=== PATIENT | male | born 1960 ===

== ENCOUNTER 2022-01-15 17:30 | Outpatient (CLI) | payer BC | END 2022-01-15 17:31 | disposition home or self-care (01) | LOC: SLEEPLAB 17:30 | PROVIDERS: ATTEND Student in an Organized Health Care Education/Training Program | DX: G47.33 Obstructive sleep apnea (adult) (pediatric) (principal); R53.83 Other fatigue; E66.9 Obesity, unspecified; R06.83 Snoring; I10 Essential (primary) hypertension; G47.00 Insomnia, unspecified; G47.31 Primary central sleep apnea; Z68.35 Body mass index [BMI] 35.0-35.9, adult | CPT/HCPCS: 95806 ==

== ENCOUNTER 2022-02-18 19:30 | Outpatient (CLI) | payer BC | END 2022-02-18 19:31 | disposition home or self-care (01) | LOC: SLEEPLAB 19:30 | PROVIDERS: ATTEND Student in an Organized Health Care Education/Training Program | DX: G47.33 Obstructive sleep apnea (adult) (pediatric) (principal); R53.83 Other fatigue; E66.9 Obesity, unspecified; R06.83 Snoring; I10 Essential (primary) hypertension | CPT/HCPCS: 95811 ==

== ENCOUNTER 2024-05-28 23:47 | Inpatient (IN) | payer BC ==
[2024-05-29 00:56] VITALS: TEMP 97.6
[2024-05-29] MEDS ORDERED: Dextrose 50% Abboject 50 ML SYRINGE SLOW IVP PRN ×2 (01:43→10:59)
[2024-05-29] MEDS ORDERED: Glucagon 1 MG/ML KIT IM PRN ×2 (01:43→10:59)
[2024-05-29] MEDS ORDERED: traMADol HCl 50 MG TAB PO PRN (01:43)
[2024-05-29] MEDS ORDERED: Morphine 2 MG/ML VIAL SLOW IVP PRN (01:43)
[2024-05-29] MEDS ORDERED: Dextrose 5% in Water 1,000 ML IV PRN ×2 (01:43→10:59)
[2024-05-29] MEDS ORDERED: Promethazine HCl 25 MG/ML VIAL IM PRN (01:43)
[2024-05-29] MEDS ORDERED: Insulin Lispro 100 UNIT/ML 10 ML VIAL SC PRN (01:43)
[2024-05-29] MEDS ORDERED: Ondansetron PF 4 MG/2 ML Vial IVP PRN ×2 (01:43→10:59)
[2024-05-29 07:15] LABS: #Basophils 0.04 10x3/uL (0.0-0.2); %Basophils 0.3 % (0.0-1.0); %Eosinophils 0.4 % (0.0-10.0); %Lymphocytes 9.6 % (21.0-51.0); %Monocytes 9.1 % (0.0-10.0); %Neutrophils 80.2 % (42.0-75.0); Mean Corpuscular HGB CONC 33.3 g/dL (32.0-36.0); Mean Corpuscular Hemoglobin 28.5 pg (27.0-31.0); Mean Corpuscular Volume 85.5 fL (78.0-98.0); Platelet Count 184 10x3/uL (130-400); RBC Distribution Width 13.9 % (11.5-14.5); Red Blood Cell (RBC) Count 4.91 mill/uL (4.70-6.10)
[2024-05-29 07:46] LABS: Anion Gap 15 mmol/L (10-20); BUN (Urea Nitrogen) 13 mg/dL (8.4-25.7); Calc. Creatinine Clearance 0 mL/min (70-130); Calcium 9.3 mg/dL (7.8-10.44); Carbon Dioxide 20 mmol/L (23-31); Chloride 106 mmol/L (98-107); Estimated GFR 102; Glucose 150 mg/dL (80-115); Potassium 4.6 mmol/L (3.5-5.1); Sodium 136 mmol/L (136-145)
[2024-05-29 07:53] LABS: #Basophils 0.03 10x3/uL (0.0-0.2); %Basophils 0.2 % (0.0-1.0); %Eosinophils 0.6 % (0.0-10.0); %Lymphocytes 11.3 % (21.0-51.0); %Monocytes 9.1 % (0.0-10.0); %Neutrophils 78.4 % (42.0-75.0); Hematocrit 44.3 % (42.0-52.0); Hemoglobin 14.9 g/dL (14.0-18.0); Mean Corpuscular HGB CONC 33.6 g/dL (32.0-36.0); Mean Corpuscular Hemoglobin 28.7 pg (27.0-31.0); Mean Corpuscular Volume 85.4 fL (78.0-98.0); Mean Platelet Volume 11.7 fL (7.4-10.4); Platelet Count 191 10x3/uL (130-400); Red Blood Cell (RBC) Count 5.19 mill/uL (4.70-6.10)
[2024-05-29 08:01] VITALS: BP 132/87
[2024-05-29 08:12] LABS: Anion Gap 17 mmol/L (10-20); BUN (Urea Nitrogen) 14 mg/dL (8.4-25.7); Calc. Creatinine Clearance 0 mL/min (70-130); Calcium 9.4 mg/dL (7.8-10.44); Carbon Dioxide 19 mmol/L (23-31); Chloride 106 mmol/L (98-107); Estimated GFR 102; Glucose 146 mg/dL (80-115); Potassium 4.6 mmol/L (3.5-5.1); Sodium 137 mmol/L (136-145)
[2024-05-29] MEDS ORDERED: EPINEPHrine 1 MG/ML VIAL ONE (08:49)
[2024-05-29] MEDS ORDERED: Bupivacaine 0.25% HCL 30 ML VIAL ONE (08:49)
[2024-05-29] MEDS: Piperacillin/Tazobactam 3.375 GM in Sodium Chloride 0.9% 100 ML IVPB SCH ×2 (09:10→09:20)
[2024-05-29] MEDS ORDERED: PROPOFOL 20 ML ONE (09:18)
[2024-05-29] MEDS ORDERED: Rocuronium Bromide 10 MG/ML (10ML VIAL) ONE (09:18)
[2024-05-29] MEDS ORDERED: Midazolam HCl 2 mg/2 ml Vial ONE (09:19)
[2024-05-29] MEDS ORDERED: fentaNYL 50 mcg/mL 1 mL Vial ONE (09:19)
[2024-05-29] MEDS ORDERED: SUCCINYLCHOLINE/SOD CL,ISO/PF 200 MG/10 ML SYRINGE FS ONE (10:07)
[2024-05-29] MEDS ORDERED: Lidocaine 1% PF 5 ML VIAL ONE (10:07)
[2024-05-29] MEDS ORDERED: Ketamine In 0.9 % NaCl 50 MG/5 ML SYRINGE ONE (10:12)
[2024-05-29] MEDS ORDERED: Ketorolac Tromethamine 30 MG (1 mL) VIAL ONE (10:30)
[2024-05-29] MEDS ORDERED: Ondansetron PF 4 MG/2 ML Vial ONE (10:30)
[2024-05-29] MEDS ORDERED: Dexamethasone 20 MG/5 ML VIAL ONE (10:30)
[2024-05-29] MEDS ORDERED: SUGAMMADEX SODIUM 200 MG/2 ML VIAL ONE (10:31)
[2024-05-29] MEDS: Sodium Chloride 0.9% 1,000 ML IV SCH (10:53)
[2024-05-29] MEDS: Famotidine 20 MG TAB PO SCH (10:53)
[2024-05-29 10:57] VITALS: BMI 35.3
[2024-05-29] MEDS ORDERED: Ipratropium/Albuterol 3 ML NEB NEB PRN (10:59)
[2024-05-29] MEDS ORDERED: Calcium Carbonate 500 MG ChewTAB PO PRN (10:59)
[2024-05-29] MEDS ORDERED: HYDROcodone/Acetaminophen 10/325 mg Tablet PO PRN (10:59)
[2024-05-29] MEDS: D5 1/2 NS w/20 mEq KCL 1,000 ML IV SCH (12:12)
[2024-05-29] MEDS: Ketorolac Tromethamine 30 MG (1 mL) VIAL IVP SCH ×2 (13:21→17:22)
[2024-05-29] MEDS: Acetaminophen 325 MG TAB PO PRN (17:23)
[2024-05-29] MEDS ORDERED: Docusate 100 MG CAP PO SCH (21:00)
[2024-05-29] MEDS ORDERED: Famotidine 20 MG TAB PO SCH (21:00)
[2024-05-30] MEDS ORDERED: Enoxaparin 30 MG (0.3 mL) SYRINGE SC SCH (09:00)
== END 2024-05-29 17:58 | disposition home or self-care (01) | DRG 399 ==
LOC: SURG A 05-29 00:34
PROVIDERS: ADMIT Student in an Organized Health Care Education/Training Program; ATTEND Student in an Organized Health Care Education/Training Program
PROC: 0DTJ4ZZ Resection of Appendix, Percutaneous Endoscopic Approach (ICD-10-PCS; principal; 2024-05-29)
DX: K35.80 Unspecified acute appendicitis (principal); E11.9 Type 2 diabetes mellitus without complications; I10 Essential (primary) hypertension; E78.5 Hyperlipidemia, unspecified; Z79.899 Other long term (current) drug therapy; Z79.84 Long term (current) use of oral hypoglycemic drugs
CPT/HCPCS: 36415; 36416; 80048; 85025; 86850; 86900; 86901; 88304; J0171; J0665; J1100; J1885; J2250; J2405; J2543; J2704; J3010; J3480; J3490